=== PATIENT | male | born 1995 ===

== ENCOUNTER 2021-02-03 11:45 | Emergency (ER) | payer OTHER ==
[2021-02-03 12:42] VITALS: BP 126/73
[2021-02-03] MEDS ORDERED: LIDOCAINE (1%) 10 MG/1 ML VIAL 20 ML MDV INFILTRATI ONE (12:47)
[2021-02-03] MEDS ORDERED: oxyCODONE /ACETAMINOPHEN 5-325MG TAB PO ONE (12:47)
--- NOTE | 2021-02-03 12:56 | Emergency Department Report ---
- General Chief complaint: Animal Bite Stated complaint: RT HAND INFECTION Time Seen by Provider: 02/03/21 12:22 Source: patient Mode of arrival: Ambulatory Limitations: Language Barrier - History of Present Illness Initial comments: 25-year-old male presents to the emergency room for right hand infection. Patient states that his right webspace between the first digit and thumb got pinched with the machine and then next few days it started to swell and have fever in it. Patient denies any fever chills no nausea no vomiting but states the pain is a 10 out of 10. Patient states the pain is so bad has not been able to sleep for the last 3 days. Patient reports he has a slight headache. Patient reports he does not take any medications on a daily basis and has no known drug allergies. MD complaint: abscess/boil Onset/Timin -: week(s) Severity scale (0 -10): 10 Consistency: constant Improves with: none Worsens with: palpation, movement Context: other Associated symptoms: denies other symptoms (Injury at work) - Related Data Allergies Allergy/AdvReac Type Severity Reaction Status Date / Time No Known Allergies Allergy Unverified 02/03/21 12:47 Abscess Boil HPI - HPI Chief Complaint: Animal Bite Stated Complaint: RT HAND INFECTION Time Seen by Provider: 02/03/21 12:22 Allergies/Adverse Reactions: Allergies Allergy/AdvReac Type Severity Reaction Status Date / Time No Known Allergies Allergy Unverified 02/03/21 12:47 ED Review of Systems ROS: Stated complaint: RT HAND INFECTION Other details as noted in HPI Comment: All other systems reviewed and negative ED Past Medical Hx - Past Medical History Previous Medical History?: No - Surgical History Past Surgical History?: No - Social History Smoking Status: Never Smoker Substance Use Type: Alcohol ED Physical Exam - General Limitations: Language Barrier General appearance: alert, in no apparent distress - Head Head exam: Present: atraumatic, normocephalic - Eye Eye exam: Present: normal appearance - ENT ENT exam: Present: normal external ear exam - Neck Neck exam: Present: normal inspection - Respiratory Respiratory exam: Absent: accessory muscle use - Cardiovascular Cardiovascular Exam: Present: regular rate - Expanded Upper Extremity Exam Right Shoulder Exam: Present: normal inspection Upper Arm exam: Present: normal inspection Elbow exam: Present: normal inspection Hand Wrist exam: Present: tenderness, swelling. Absent: full ROM Vascular: Present: normal capillary refill - Back Exam Back exam: Present: normal inspection - Neurological Exam Neurological exam: Present: alert, oriented X3, normal gait ED Course Vital Signs 02/03/21 12:41 Temperature 99.6 F Pulse Rate 78 Respiratory 16 Rate Blood Pressure 126/73 [Left] O2 Sat by Pulse 97 Oximetry Critical care attestation.: If time is entered above; I have spent that time in minutes in the direct care of this critically ill patient, excluding procedure time. ED Disposition Condition: Stable
[2021-02-03] MEDS ORDERED: CLINDAMYCIN 300 MG CAP PO ONE (14:29)
--- NOTE | 2021-02-03 14:34 | Emergency Department Report ---
ED Extremity Problem HPI - General Chief complaint: Animal Bite Stated complaint: RT HAND INFECTION Time Seen by Provider: 02/03/21 12:22 Source: patient Mode of arrival: Ambulatory Limitations: Language Barrier - History of Present Illness Initial comments: 25-year-old male comes in with his cousin for right hand swelling pain and concern for infection. Patient states 1 week ago he was using a machine and neck pinched his right inner thigh near the webspace. Patient states he did not think much about it but then started to have swelling that has progressively gotten worse with increased pain and decreased range of motion. Patient reports he does not take any medications on a daily basis denies any known drug allergies reports his pain is a 10 out of 10 and has a slight headache. Patient states has not been able to sleep secondary to pain. MD Complaint: extremity pain, extremity swelling, joint swelling, joint paint Onset/Timin Location: right, upper extremity History of Same: No -: Yes myalgia, No fever, No associated dyspnea Radiation: proximal Severity scale (0 -10): 10 Consistency: constant Improves with: nothing Worsens with: palpation Associated Symptoms: myalgias. denies: fever - Related Data Allergies Allergy/AdvReac Type Severity Reaction Status Date / Time No Known Allergies Allergy Unverified 02/03/21 12:47 ED Review of Systems ROS: Stated complaint: RT HAND INFECTION Other details as noted in HPI Comment: All other systems reviewed and negative ED Past Medical Hx - Past Medical History Previous Medical History?: No - Surgical History Past Surgical History?: No - Social History Smoking Status: Never Smoker Substance Use Type: Alcohol ED Physical Exam - General Limitations: Language Barrier General appearance: alert, in no apparent distress - Head Head exam: Present: atraumatic, normocephalic - Eye Eye exam: Present: normal appearance - ENT ENT exam: Present: mucous membranes moist, normal external ear exam - Neck Neck exam: Present: normal inspection, full ROM - Respiratory Respiratory exam: Present: normal lung sounds bilaterally. Absent: respiratory distress, accessory muscle use - Cardiovascular Cardiovascular Exam: Present: regular rate - Expanded Upper Extremity Exam Right Shoulder Exam: Present: normal inspection Upper Arm exam: Present: normal inspection Elbow exam: Present: normal inspection Forearm Wrist exam: Present: normal inspection Hand Wrist exam: Present: normal inspection, tenderness, swelling, erythema. Absent: full ROM, deformity Neurosensory exam: Present: ulnar nerve intact, median nerve intact Vascular: Present: normal capillary refill - Back Exam Back exam: Present: normal inspection - Neurological Exam Neurological exam: Present: alert, oriented X3, CN II-XII intact, normal gait - Psychiatric Psychiatric exam: Present: normal affect, normal mood ED Course Vital Signs 02/03/21 12:41 Temperature 99.6 F Pulse Rate 78 Respiratory 16 Rate Blood Pressure 126/73 [Left] O2 Sat by Pulse 97 Oximetry - Consultations Consultation #1: 02/03/21 14:54 Spoke to ER attending Dr. Yuan Lozano came to evaluate patient reports patient needs to be transferred to a hand specialist. Consultation #2: 02/03/21 14:[address] Lange [place] [facility] patient like the patient to be transferred to the emergency room. Consultation #3: 02/03/21 14:56 Spoke to ER doctor she has accepted patient in the ER. ED Medical Decision Making - Medical Decision Making 25-year-old male comes in with his cousin for right hand swelling pain and concern for infection. Patient states 1 week ago he was using a machine and neck pinched his right inner thigh near the webspace. Patient states he did not think much about it but then started to have swelling that has progressively gotten worse with increased pain and decreased range of motion. Patient reports he does not take any medications on a daily basis denies any known drug allergies reports his pain is a 10 out of 10 and has a slight headache. Patient states has not been able to sleep secondary to pain. Informed Dr. Yuan Lozano ER attending to come evaluate patient he agrees that patient needs to be transferred to a hand specialist as he has infectious tenosynovitis. Initiated CBC CMP lactic acid and ESR. Ordered INT with cli ndamycin 900 mg IV. Contacted ER medical receptionist assistant to call to see if [facility] is able to accept patient. Spoke to [facility] transfer center they report that they are not accepting any thing but almodovar trauma and strokes. Talk to [facility] [place] and spoke to Dr. Lange and specialist at [facility] he has accepted the patient. He would like for me to send the patient to the ER. Spoke to ER attending she has accepted the patient to ER to ER. Report called given to triage nurse at [facility] [place] Critical Care Time: Yes (45) Critical care attestation.: If time is entered above; I have spent that time in minutes in the direct care of this critically ill patient, excluding procedure time. ED Disposition Clinical Impression: Infectious tenosynovitis of right wrist extensor Disposition: [id number] ANOTHER TYPE HLTHCARE Is pt being admited?: No Does the pt Need Aspirin: No Condition: Stable Instructions: Tenosynovitis Additional Instructions: Patient is being transferred to [facility] [place] to ER to be evaluated by hand specialist Dr. Lange. Referrals: PRIMARY CARE, [Primary Care Provider] - 3-5 Days Forms: Work/School Release Form(ED), Accompanied Note
[2021-02-03 15:11] LABS: Eosinophils % (Auto) 0.1 % (0.0-4.3); Hematocrit 45.6 % (35.5-45.6); Hemoglobin 15.5 gm/dl (11.8-15.2); Lymphocytes # (Auto) 2.6 K/mm3 (1.2-5.4); Lymphocytes % (Auto) 13.3 % (13.4-35.0); Mean Corpuscular HGB Conc 34 % (32-34); Mean Corpuscular Volume 94 fl (84-94); Monocytes # (Auto) 2.2 K/mm3 (0.0-0.8); Monocytes % (Auto) 11.1 % (0.0-7.3); Platelet Count 294 K/mm3 (140-440); Red Blood Count 4.83 M/mm3 (3.65-5.03); Red Cell Distribution Width 12.8 % (13.2-15.2)
[2021-02-03] MEDS ORDERED: ONDANSETRON 4 MG/2 ML INJ IV ONE (15:13)
[2021-02-03] MEDS ORDERED: MORPHINE 4 MG/1 ML INJ IV ONE (15:13)
[2021-02-03 15:24] LABS: Alanine Aminotransferase 29 units/L (7-56); Albumin 4.8 g/dL (3.9-5); Hemolysis Index 21
[2021-02-03 15:39] LABS: Blood Urea Nitrogen < 1 mg/dL (9-20)
[2021-02-03 15:40] LABS: BUN/Creatinine Ratio 2
[2021-02-03 16:15] LABS: Erythrocyte Sedimentation Rate 18 mm/Hr (0-20)
[2021-02-03] MEDS ORDERED: HYDROmorphone 1 MG/1 ML INJ IV ONE (17:26)
== END 2021-02-03 21:43 | disposition other institution (70) ==
LOC: ED 11:45
DX: M65.131 Other infective (teno)synovitis, right wrist (principal)
CPT/HCPCS: 36415; 80053; 82140; 85025; 85652; 96374; 96375; 99283; J1170; J2270; J2405